=== PATIENT | female | born 1995 ===

== ENCOUNTER 2019-01-13 11:32 | Emergency (ER) | payer OTHER ==
[2019-01-13 11:40] VITALS: BP 111/68; PULSE 66; RESP 18; TEMP 98.8; O2SAT 100
--- NOTE | 2019-01-13 12:29 | C.PDOC ---
History Of Present Illness 23 y/o female pt presents to the ER c/o left ankle pain x1.5 weeks. Pt reports she is a [employer] and x2 days ago she was running up a steep hill and the medial aspect of her ankles were clicking. Pt is concerned which prompted her to come to the ER. Patient denies weakness and numbness. Time Seen by Provider: 01/13/19 11:45 Chief Complaint (Nursing): Lower Extremity Problem/Injury History Per: Patient History/Exam Limitations: no limitations Onset/Duration Of Symptoms: Days (x1.5 weeks) Current Symptoms Are (Timing): Still Present Past Medical History Reviewed: Historical Data, Nursing Documentation, Vital Signs Vital Signs: Last Vital Signs Temp 98.8 F 01/13/19 11:38 Pulse 66 01/13/19 11:38 Resp 18 01/13/19 11:38 BP 111/68 01/13/19 11:38 Pulse Ox 100 01/13/19 11:38 Family History: States: No Known Family Hx - Social History Hx Alcohol Use: No Hx Substance Use: No - Immunization History Hx Tetanus Toxoid Vaccination: No Hx Influenza Vaccination: No Hx Pneumococcal Vaccination: No Review Of Systems Musculoskeletal: Positive for: Other (left ankle pain ) Neurological: Negative for: Weakness, Numbness Physical Exam - Physical Exam Appears: Non-toxic, No Acute Distress Skin: Warm, Dry Head: Normacephalic Cardiovascular: Rhythm Regular Respiratory: Normal Breath Sounds Extremity: Normal ROM, Tenderness (anterior lateral ankle ), No Calf Tenderness, Capillary Refill (<2 sec), No Deformity, No Swelling Pulses: Right Dorsalis Pedis: Normal Neurological/Psych: Oriented x3, Normal Speech, Normal Cognition, Normal Motor, Normal Sensation ED Course And Treatment O2 Sat by Pulse Oximetry: 100 (RA) Pulse Ox Interpretation: Normal - Other Rad Left ankle X-Ray: Read By Radiologist Interpretation: Accession No. : [id number]. Patient Name / ID : ADE VERAS / [id number]. Exam Date : 01/13/2019 12:37:21 ( Approved ). Study Comment : Sex / Age : F / 23Y. Creator : Bandar Norris MD. Dictator : Bandar Norris MD. Computer Applications Developer : Tacking Stitch Remover : Bandar Norris MD. Approver2 : Report Date : 01/13/2019 12:55:30. My Comment : . Date of service: 01/13/2019. PROCEDURE: Left Ankle Radiographs. HISTORY: anterior ankle pain. COMPARISON: None available. FINDINGS: BONES: Normal. No fracture. JOINTS: Normal. No osteoarthritis. Ankle mortise maintained. Talar dome intact. SOFT TISSUES: Normal. OTHER FINDINGS: None. IMPRESSION: Normal left ankle radiographs. Medical Decision Making Medical Decision Making: Plans: -- left ankle XR 1345 pt seen by podiatry, recommend brace, pod f/u on tuesday. xray neg Disposition Counseled Patient/Family Regarding: Studies Performed, Diagnosis, Need For F ollowup - Disposition Referrals: [facility] [Outside] Disposition: HOME/ ROUTINE Disposition Time: 13:47 Condition: GOOD Additional Instructions: Wear lacer brace, Go to clinic on Tuesday by 10 am to get seen in podiatry clinic. Forms: [facility] (Pashto), General Discharge Instructions, Work Excuse, Gym Excuse - Clinical Impression Clinical Impression: Left ankle pain - PA / TRANSONIC ENGINEER / Resident Statement / has reviewed & agrees with the documentation as recorded. - Scribe Statement The provider has reviewed the documentation as recorded by the [place] Do All medical record entries made by the [place] were at my direction and personally dictated by me. I have reviewed the chart and agree that the record accurately reflects my personal performance of the history, physical exam, medical decision making, and the department course for this patient. I have also personally directed, reviewed, and agree with the discharge instructions and disposition.
--- NOTE | 2019-01-13 12:59 | RAD ---
Date of service: 01/13/2019 PROCEDURE: Left Ankle Radiographs. HISTORY: anterior ankle pain COMPARISON: None available. FINDINGS: BONES: Normal. No fracture. JOINTS: Normal. No osteoarthritis. Ankle mortise maintained. Talar dome intact SOFT TISSUES: Normal. OTHER FINDINGS: None. IMPRESSION: Normal left ankle radiographs.
--- NOTE | 2019-01-14 09:51 | CP.PCM.CON ---
History of Present Illness - History of Present Illness History of Present Illness: Podiatry consult note for Dr. Willis, 23 y/o female patient with no significant PMHx was seen and evaluated for left ankle pain, which she states started about 1.5 weeks ago when she was running uphill. Patient is currently in the [employer] training program. Patient states she noticed a "clicking" on the inside of her ankle, and then 2 days ago started having pain to the lateral aspect of her anterior ankle. Patient states she has continued her training, and takes Naproxen, which alleviates her pain. Patient states she would like to continue her training. Patient denies weakness and numbness. PMHx: Migraines PSHx: none Medications: Naproxen Allergies: none Review of Systems - Review of Systems All systems: reviewed and no additional remarkable complaints except Review of Systems: As per HPI Past Patient History - Past Social History Smoking Status: Never Smoked - PSYCHIATRIC Hx Substance Use: No - SURGICAL HISTORY Hx Surgeries: No - ANESTHESIA Hx Anesthesia: No Meds Allergies/Adverse Reactions: Allergies Allergy/AdvReac Type Severity Reaction Status Date / Time No Known Allergies Allergy Verified 01/13/19 11:40 Physical Exam - Constitutional Appears: Non-toxic - Head Exam Head Exam: ATRAUMATIC, NORMOCEPHALIC - Extremities Exam Additional comments: Bilateral Lower Extremity Exam VASC: DP and PT 2/4 bilaterally, CFT less than 3 seconds x 10, TG within normal limits, minimal edema noted to the lateral aspect of the ankle NEURO: epicritic and protective sensations intact DERM: no wounds, no open lesions, no erythema, no ecchymosis, no signs of infection ORTHO: clicking noted at the anterior level of the ankle likely of the anterior tibial tendon, pain on palpation to the anterior lateral aspect of then ankle, pain on active dorsiflexion, and pain on inversion at the lateral aspect of the ankle - Neurological Exam Neurological exam: Alert, Oriented x3 - Psychiatric Exam Psychiatric exam: Normal Affect, Normal Mood Results - Vital Signs Recent Vital Signs: Last Vital Signs Temp 98.8 F 01/13/19 11:38 Pulse 66 01/13/19 11:38 Resp 18 01/13/19 11:38 BP 111/68 01/13/19 11:38 Pulse Ox 100 01/13/19 13:48 Assessment & Plan - Assessment and Plan (Free Text) Assessment: 23 y/o female patient seen and evaluated for left ankle pain Plan: Patient seen and evaluated Plan discussed with Dr. Willis Chart, labs and vitals reviewed Left ankle x-rays: negative for fractures of dislocations Patient strongly recommended to stay non-weight bearing, however, patient states she will continue her training Patient advised to wear a lace up ankle brace when running, patient provided with a note that she can wear ankle brace during training sessions Patient will follow up in Podiatry clinic for further evaluation to determine whether patient can continue training, and to see whether further imaging is recommended Patient agreeable with this time and states she will see if she can train 3 days out of the week All patient questions were answered Thank you for the consult - Date & Time Date: 01/14/19 Time: 11:32
== END 2019-01-13 14:05 | disposition home or self-care (01) ==
LOC: C.ER 11:32
DX: M25.572 Pain in left ankle and joints of left foot (principal)